=== PATIENT | female | born 1945 | race Caucasian/White ===

== ENCOUNTER 2019-12-12 22:08 | Observation (INO) | payer MEDICARE, OTHER, SELFPAY ==
[2019-12-12] VITALS (16 sets, daily range): BP systolic 112–189; BP diastolic 62–98; PULSE 82–103; RESP 20–40; TEMP 36.5; O2SAT 88–99; BMI 23.5
--- NOTE | 2019-12-12 22:19 | DI.CT.S_ITS ---
PROCEDURE: CT STROKE INDICATIONS: Left leg weak/word finding difficulties. 845pm onset TECHNIQUE: Noncontrast 4.5 mm thick angled axial sections acquired from the foramen magnum to the vertex, with coronal reformats. For radiation dose reduction, the following was used: automated exposure control, adjustment of mA and/or kV according to patient size. COMPARISON: [facility], CT, CT ANGIO HEAD AND NECK, 12/12/2019, 22:38. FINDINGS: Image quality: Excellent. CSF spaces: Basal cisterns are patent. No extra-axial fluid collections. Ventricles are normal in size and shape. Brain: No intracranial hemorrhage, mass, or mass effect. Patterson-white matter interface appears preserved. Skull and face: Calvarium and visualized facial bones appear intact, without suspicious lesions. Sinuses: Visualized sinuses demonstrate mild mucosal thickening within the ethmoid sinuses. Mastoid air cells are clear. IMPRESSION: 1. No acute intracranial abnormality. Specifically, no imaging contraindications to tPA identified. Concordant with preliminary interpretation. This study fulfills neurological imaging criteria for inclusion or exclusion of acute stroke therapies based on available published neurological guidelines. Dictated by: Jaret Johnston M.D. on 12/13/2019 at 7:37 Approved by: Jaret Johnston M.D. on 12/13/2019 at 7:41
--- NOTE | 2019-12-12 22:21 | ED_ITS ---
HPI - General Adult General Chief complaint: Extremity Problem,Nontraumatic Stated complaint: Leg pain Time Seen by Provider: 12/12/19 22:18 History of Present Illness HPI narrative: 74-year-old woman with a history of hypothyroidism and high cholesterol presents after noticing acute left leg weakness at 8:45 a.m. tonight. She and her are visiting the area in their boat. They had gone to dinner had a couple of drinks all seemed well then they drove over to a friend's house and is they got out of the car she found that her left leg simply did not hold her up. 911 was called her main complaint at this point is pain in the anterior part of her left thigh however she does have some word-finding difficulties. Related Data Home Medications Medication Instructions Recorded Confirmed ascorbic acid (vitamin C) 500 mg PO QDAY #0 10/11/16 ibuprofen 200 mg PO PRN #0 10/11/16 multivitamin [Multiple Vitamins] 1 tab PO QDAY #0 10/11/16 thyroid (pork) [Nature-Throid] 16.25 mg PO QDAY@0600 #0 10/11/16 vitamin A 10,000 unit PO #0 10/11/16 Previous Rx's Medication Instructions Recorded methocarbamol 500 mg PO QIDP PRN #28 tab 10/11/16 Allergies Allergy/AdvReac Type Severity Reaction Status Date / Time adhesive tape [ADHESIVE TAPE] Allergy Unknown Verified 12/13/19 00:08 latex [LATEX] Allergy Unknown Verified 12/13/19 00:08 Penicillins [PENICILLINS] Allergy Unknown Verified 12/13/19 00:08 Tetracyclines [TETRACYCLINES] Allergy Unknown Verified 12/13/19 00:08 Review of Systems Review of Systems Narrative: Pertinent positive and negative findings as per HPI Remainder of review of systems is otherwise unremarkable for Constitutional: Fevers, chills, weakness ENT: No sore throat, neck pain, ear pain CV: Chest pain, palpitations, dyspnea on exertion Respiratory: Cough, wheeze, dyspnea GI: Nausea, vomiting, diarrhea, change in bowel habits, black or bloody stools : Dysuria, hematuria, flank pain Skin: Rashes, nonhealing lesions Neuro: Syncope, dizziness, tingling Patient History Medical History (Updated 12/13/19 @ 00:36 by Tali Thomas MD) Hyperlipidemia (Acute) Hypothyroidism (acquired) (Acute) Social History Smoking Status: Never smoker Exam Narrative Exam Narrative: General: Healthy appearing, anxious with dramatic affect of behavior. Well-nourished well-developed HEENT: Moist mucous membranes, normal sclera with reactive pupils, Neck: No JVD, supple Respiratory: Lungs are clear to auscultation, no wheezing no rales no rhonchi. Full and symmetrical air movement Cardiac: Regular rate and rhythm no murmurs no bruits Abdomen: Soft nontender good bowel tones, no flank pain Skin: Warm and dry, no rashes Neurologic: Left leg weakness but she is able to lift off the bed. Initially had no pain now in the emergency department is having trouble explaining the symptoms of her leg but eventually and on pain in the medial aspect of her thigh. Extremities: No trauma, well perfused Psych: Cooperative, anxious, afraid, intoxicated Initial Vital Signs Initial Vital Signs: Vital Signs Pulse Oximetry 88 L 12/12/19 22:08 Scores NIH Stroke Scale Level of Conciousness: Alert, keenly responsive Ask month/age: Answers both questions correctly. Open/close eyes, close hand: Performs both tasks correctly Best gaze horizontal: Normal Visual george: No visual loss Facial palsy: Normal symetrical movement Left arm drift: No drift for full 10 sec Right arm drift: No drift for full 10 sec Left leg drift: Drifts down, not to bed Right leg drift: No drift for full 5 sec Limb ataxia: Present in one limb Sensory on face/arms/legs: Normal, no sensory loss Best language: Mild to moderate, slurs some words Dysarthria: Normal Extinction or inattention: No abnormality Total NIH Stroke scale score: 3 Citation:: On repeat exam at 11:36 p.m. The slight word-finding difficulty has resolved completely Still some subtle weakness in the left leg but no sensory deficits she is able to manipulate her leg more effectively NIH score is down to a 1 Course Orders Ordered: ED Orders 12/12/19 22:19 CT Stroke Stat EKG-12 Lead Stat 12/12/19 22:22 Complete Blood Count AUTO DIFF Stat 12/12/19 22:31 CT angio head and neck Stat 12/12/19 23:00 Comprehensive Metabolic Panel Stat Ethanol (ETOH) Stat Partial Thromboplastin Time Stat Prothrombin Time INR Stat Troponin & CK Cardiac Panel Stat 12/12/19 23:29 Urinalysis and Microscopic Stat Urine Culture Stat Urine Drug Screen, Rapid Stat 12/13/19 00:37 COVID19 -ED/INPAT/OR/L&D Stat Sodium Chloride (Normal Saline 0.9%) 1,000 mls @ 150 mls/hr IV CONT ELINA Last Admin: 12/12/19 22:30 Dose: 150 mls/hr Documented by: RMARTIN Discontinued Medications Ketorolac Tromethamine (Toradol) 15 mg IV NOW ONE Stop: 12/13/19 00:01 Last Admin: 12/13/19 00:06 Dose: 15 mg Documented by: KGALLAG Vital Signs Vital signs: Vital Signs - 8 hr 12/12/19 22:08 12/12/19 22:09 12/12/19 22:10 Temperature 97.7 F Pulse Rate 94 H 96 H Respiratory Rate 20 Blood Pressure 160/85 H 160/85 H Pulse Oximetry 88 L 98 96 12/12/19 22:27 12/12/19 22:30 12/12/19 22:31 Temperature Pulse Rate 98 H 88 103 H Respiratory Rate 40 H 38 H 37 H Blood Pressure 189/98 H 158/72 H Pulse Oximetry 99 92 99 12/12/19 22:35 12/12/19 22:50 12/12/19 23:00 Temperature Pulse Rate 93 H 97 H 91 H Respiratory Rate 20 Blood Pressure 153/74 H 171/98 H 136/80 Pulse Oximetry 99 99 98 12/12/19 23:06 12/12/19 23:15 12/12/19 23:20 Temperature Pulse Rate 92 H 91 H 82 Respiratory Rate 25 H 30 H 31 H Blood Pressure 139/80 112/82 115/72 Pulse Oximetry 99 98 96 12/12/19 23:25 12/12/19 23:30 12/12/19 23:35 Temperature Pulse Rate 95 H 84 86 Respiratory Rate 30 H 24 30 H Blood Pressure 121/74 133/80 133/75 Pulse Oximetry 98 99 99 12/12/19 23:45 12/13/19 00:00 Temperature Pulse Rate 89 88 Respiratory Rate Blood Pressure 124/62 148/69 H Pulse Oximetry 99 99 Medical Decision Making Medical Records Medical records reviewed: Yes I reviewed the patient's medical records. Lab Data Lab results reviewed: Yes I reviewed the patient's lab results. Result diagrams: 12/12/19 22:22 12/12/19 23:00 Labs: Lab Results 12/12/19 12/12/19 12/12/19 Range/Units 22:22 23:00 23:00 WBC 7.6 (4.5-11.0) X10^3/uL RBC 4.58 (4.0-5.2) X10^6/uL Hgb 14.8 (12.0-16.0) g/dL Hct 43.0 (36-46) % MCV 94.0 (80-100) fL MCH 32.3 (26-34) PG MCHC 34.4 (30-36) % RDW 13.5 (11.6-14.8) % Plt Count 344 (150-400) X10^3/uL Neut % (Auto) 40.0 L (50-75) % Lymph % (Auto) 48.9 H (25-40) % [place] % (Auto) 6.9 (3-14) % Eos % (Auto) 3.6 (2-4) % Baso % (Auto) 0.6 (0-2) % Neut # (Auto) 3000 (9417-9465) /uL Lymph # (Auto) 3700 (8196-7898) /uL [place] # (Auto) 500 (0-900) /uL Eos # (Auto) 300 (0-450) /uL Baso # (Auto) 0 (0-100) /uL PT 10.5 (10.1-12.7) SECONDS INR 0.9 (0.9-1.3) APTT 29 (26.4-36.2) SECONDS Sodium 140 (137-145) mmol/L Potassium 5.1 (3.4-5.1) mmol/L Chloride 105 (98-107) mmol/L Carbon Dioxide 25 (22-32) mmol/L BUN 16 (7-17) mg/dL Creatinine 0.68 (0.52-1.04) mg/dL Estimated GFR > 60.0 (>60) mL/min BUN/Creatinine Ratio 23.5 H (6-22) Glucose 96 (80-110) mg/dL Calcium 9.3 (8.4-10.2) mg/dL Total Bilirubin 0.4 (0.2-1.3) mg/dL AST 27 (14-36) IU/L ALT 21 (<35) IU/L Alkaline Phosphatase 81 (38-126) U/L Total Creatine Kinase 72 (30-135) U/L CK-MB (CK-2) TNP CK-MB (CK-2) Rel Index TNP Troponin I < 0.012 (0.01-0.034) ng/mL Total Protein 7.4 (6.3-8.2) g/dL Albumin 4.4 (3.5-5.0) g/dL Globulin 3.0 (1.7-4.1) g/dL Albumin/Globulin Ratio 1.5 (1.0-2.8) Urine Color Urine Appearance Urine pH (4.5-8.0) Ur Specific [place] (1.000-1.035) Urine Protein (Negative) Urine Glucose (UA) (Negative) g/dL Urine Ketones (NEGATIVE) Urine Occult Blood (Negative) Urine Nitrate (Negative) Urine Bilirubin (NEGATIVE) Urine Urobilinogen (0.2) E.U./dL Ur Leukocyte Esterase (NEGATIVE) Urine RBC (0-5/HPF) Urine WBC (0-5/HPF) Urine Bacteria (None) Ur Culture Indicated? U Opiates 300ng/mL cut (Negative) Ur Oxycodone Screen (Negative) Urine Methadone Screen (Negative) Ur Barbiturates Screen (Negative) U Tricyclic Antidepress (Negative) Ur Phencyclidine Scrn (Negative) Ur Amphetamines Screen (Negative) U Methamphetamines Scrn (Negative) Ur MDMA Scrn (Ecstasy) (Negative) U Benzodiazepines Scrn (Negative) Urine Cocaine Screen (Negative) U Marijuana (THC) Screen (Negative) Ethyl Alcohol 229 H ( - 10) mg/dL 12/12/19 12/12/19 Range/Units 23:29 23:29 WBC (4.5-11.0) X10^3/uL RBC (4.0-5.2) X10^6/uL Hgb (12.0-16.0) g/dL Hct (36-46) % MCV (80-100) fL MCH (26-34) PG MCHC (30-36) % RDW (11.6-14.8) % Plt Count (150-400) X10^3/uL Neut % (Auto) (50-75) % Lymph % (Auto) (25-40) % [place] % (Auto) (3-14) % Eos % (Auto) (2-4) % Baso % (Auto) (0-2) % Neut # (Auto) (6494-6469) /uL Lymph # (Auto) (7082-3297) /uL [place] # (Auto) (0-900) /uL Eos # (Auto) (0-450) /uL Baso # (Auto) (0-100) /uL PT (10.1-12.7) SECONDS INR (0.9-1.3) APTT (26.4-36.2) SECONDS Sodium (137-145) mmol/L Potassium (3.4-5.1) mmol/L Chloride (98-107) mmol/L Carbon Dioxide (22-32) mmol/L BUN (7-17) mg/dL Creatinine (0.52-1.04) mg/dL Estimated GFR (>60) mL/min BUN/Creatinine Ratio (6-22) Glucose (80-110) mg/dL Calcium (8.4-10.2) mg/dL Total Bilirubin (0.2-1.3) mg/dL AST (14-36) IU/L ALT (<35) IU/L Alkaline Phosphatase (38-126) U/L Total Creatine Kinase (30-135) U/L CK-MB (CK-2) CK-MB (CK-2) Rel Index Troponin I (0.01-0.034) ng/mL Total Protein (6.3-8.2) g/dL Albumin (3.5-5.0) g/dL Globulin (1.7-4.1) g/dL Albumin/Globulin Ratio (1.0-2.8) Urine Color Yellow Urine Appearance Clear Urine pH 6.5 (4.5-8.0) Ur Specific [place] <=1.005 (1.000-1.035) Urine Protein Negative (Negative) Urine Glucose (UA) Negative (Negative) g/dL Urine Ketones Negative (NEGATIVE) Urine Occult Blood Trace-intact (Negative) Urine Nitrate Negative (Negative) Urine Bilirubin Negative (NEGATIVE) Urine Urobilinogen 0.2 (0.2) E.U./dL Ur Leukocyte Esterase 2+ H (NEGATIVE) Urine RBC 0-1/hpf (0-5/HPF) Urine WBC 1-5/hpf (0-5/HPF) Urine Bacteria None seen (None) Ur Culture Indicated? Specimen cultured U Opiates 300ng/mL cut Negative (Negative) Ur Oxycodone Screen Negative (Negative) Urine Methadone Screen Negative (Negative) Ur Barbiturates Screen Negative (Negative) U Tricyclic Antidepress Negative (Negative) Ur Phencyclidine Scrn Negative (Negative) Ur Amphetamines Screen Negative (Negative) U Methamphetamines Scrn Negative (Negative) Ur MDMA Scrn (Ecstasy) Negative (Negative) U Benzodiazepines Scrn Negative (Negative) Urine Cocaine Screen Negative (Negative) U Marijuana (THC) Screen Negative (Negative) Ethyl Alcohol ( - 10) mg/dL Point of Care Testing Glucose POC 108 Urine Dip Bedside Urine Glucose 100 mg/dl Bedside Urine Ketone - Negative Urine Specific [place] 1.01 Bedside Urine Occult Blood +/- Bedside Urine pH 6 Bedside Urine Protein - Negative Bedside Urine Urobilinogen - Negative Bedside Urine Nitrite - Negative Bedside Urine Leukocytes ++ 125 Esterase Point of care testing: Point of Care Testing Glucose POC 108 Urine Dip Bedside Urine Glucose 100 mg/dl Bedside Urine Ketone - Negative Urine Specific [place] 1.01 Bedside Urine Occult Blood +/- Bedside Urine pH 6 Bedside Urine Protein - Negative Bedside Urine Urobilinogen - Negative Bedside Urine Nitrite - Negative Bedside Urine Leukocytes ++ [address] scan - head: Radiologist's Impression: No acute findings Harleen Greco MD CTA head and neck: Radiologist's Impression: No intracranial large artery occlusion or hemodynamically significant stenosis No occlusion or hemodynamically significant stenosis in the carotid or vertebral arteries. No dissection Tay Chatman MD ECG Data Attestation: I personally reviewed and interpreted this ECG as follows: Interpretation: Sinus rhythm at a rate of 90 Normal axis, normal intervals No acute ST- T wave changes MDM Narrative Medical decision making narrative: code stroke called 10:21pm. 11:37 CT scan is reviewed personally. No evidence of acute intracranial hemorrhage. Due to technical difficulty still waiting to hear back from Radiology Patient is reexamined and stroke scale reviewed. She is down to an NIH score of 1 from 3. I do suspect that some of the anxiety dramatic affect and word-finding difficulties were related to acute alcohol intoxication rather than stroke. Discussed findings, concerns and improved symptoms with patient and her . Because of uncertain diagnosis, minimal NIH score and improving symptoms she is not a tPA candidate. Still waiting for CTA read to see if additional intervention may be appropriate 11:43 Radiology confirms normal head CT Still having left leg weakness without sensory changes. Also now noticing some left knee pain. She has had a left knee replacement. At this time, best explanation for the acute left leg weakness is a small stroke. TIAs possibility. Would like to admit her for further stroke workup. 1252 Care reviewed with night hospitalist, Ottoniel LANE Discharge Plan Departure Patient Disposition: Admitted as Observation Clinical Impression: Stroke Qualifiers: CVA mechanism: unspecified Qualified Code(s): I63.9 - Cerebral infarction, unspecified
[2019-12-12] MEDS: SODIUM CHLORIDE 0.9% 1,000 ML 150 ML IV (22:30)
--- NOTE | 2019-12-12 22:31 | DI.CT.S_ITS ---
PROCEDURE: CT ANGIO HEAD AND NECK INDICATIONS: left leg weakness, word finding difficulty 845pm TECHNIQUE: After the administration of intravenous contrast, 1 mm thick sections acquired from the aortic arch through the [place]. Post-contrast 4.5 mm thick sections then re-acquired from the foramen magnum to the vertex. 3-dimensional [id number] (MIP) and/or volume rendering reformats were acquired of the central intracranial vasculature and neck separately. COMPARISON: None. FINDINGS: Image quality: Excellent. BRAIN: CSF spaces: Basal cisterns are patent. No extra-axial fluid collections. Ventricles are normal in size and shape. Brain: No intracranial hematoma collections, mass, or mass effect. Patterson-white matter interface appears preserved. No abnormal intracranial enhancement. Skull and face: Calvarium and facial bones appear intact, without suspicious lesions. Orbits appear normal. Sinuses: Sinuses and mastoids are clear. HEAD CT ANGIOGRAPHY: Anterior circulation: Intracranial internal carotid arteries are normal in size and appear patent bilaterally. There is mild atherosclerotic calcification along the cavernous segments of the internal carotid arteries. The paired anterior cerebral arteries appear patent bilaterally. The anterior communicating artery also appears patent. The middle cerebral arteries appear patent bilaterally. No high-grade stenosis, occlusion, or filling defects. No cerebral aneurysms identified. Posterior circulation: Visualized portions of the vertebral arteries demonstrate normal caliber, and join to form a patent basilar artery. The posterior cerebral arteries appears patent bilaterally. No high-grade stenosis, occlusion, or filling defects. No cerebral aneurysms identified. NECK CT ANGIOGRAPHY: Carotid system: The great vessels demonstrate a conventional anatomy as they arise from the aortic arch. The origins of the common carotid arteries appear patent. The common carotid arteries demonstrate normal caliber and courses. The bifurcation regions are both widely patent. There is mild vascular calcification in the left carotid bulb. The internal carotid arteries demonstrate normal calibers and courses. Posterior circulation: The origins of the vertebral arteries both appear patent. The more superior extracranial portions of both vertebral arteries also demonstrate normal courses and calibers. They join to form a patent basilar artery. Soft tissues: Visualized neck soft tissues demonstrate a left thyroid nodule measuring up to 1.6 cm. Bones: No suspicious bony lesions. Visualized cervical spine demonstrates mild reversal the cervical lordosis in the midcervical spine. There is minimal anterolisthesis at C3-C4 and minimal retrolisthesis at C6-C7. Moderate degenerative disc disease is demonstrated in the mid and lower cervical spine. There is [id number] facet arthropathy throughout the cervical spine. IMPRESSION: 1. No definite acute intracranial abnormality. 2. No high-grade stenosis or occlusion of the central intracranial arteries. No discrete filling defects. 3. No high-grade stenosis or occlusion of the head and neck arteries. The carotid bulbs appear widely patent. Concordant with preliminary interpretation. Any quantitative measurements of stenosis were performed using NASCET criteria. Dictated by: Jaret Johnston M.D. on 12/13/2019 at 7:42 Approved by: Jaret Johnston M.D. on 12/13/2019 at 7:54
[2019-12-12 22:32] LABS: Add Manual Diff / Slide Review NO; Basophils Absolute Auto 0 /uL (0-100); Basophils Percent Auto 0.6 % (0-2); Eosinophils Absolute Auto 300 /uL (0-450); Eosinophils Percent Auto 3.6 % (2-4); Hemoglobin 14.8 g/dL (12.0-16.0); Lymphocytes Absolute Auto 3700 /uL (1100-4500); Lymphocytes Percent Auto 48.9 % (25-40); Mean Corpuscular HGB Conc 34.4 % (30-36); Mean Corpuscular Hemoglobin 32.3 PG (26-34); Monocytes Absolute Auto 500 /uL (0-900); Monocytes Percent Auto 6.9 % (3-14); Neutrophils Absolute Auto 3000 /uL (1500-7000); Platelet Count 344 X10^3/uL (150-400); Red Blood Cell Count 4.58 X10^6/uL (4.0-5.2); Red Cell Distribution Width 13.5 % (11.6-14.8); White Blood Cell Count 7.6 X10^3/uL (4.5-11.0)
[2019-12-12 23:12] LABS: INR 0.9 (0.9-1.3); Prothrombin Time 10.5 SECONDS (10.1-12.7)
[2019-12-12 23:15] LABS: PTT Partial Thromboplastin Tim 29 SECONDS (26.4-36.2)
[2019-12-12 23:16] LABS: Alanine Aminotransferase 21 IU/L (<35); Albumin 4.4 g/dL (3.5-5.0); Albumin Globulin Ratio 1.5 (1.0-2.8); Alkaline Phosphatase 81 U/L (38-126); Aspartate Aminotransferase 27 IU/L (14-36); BUN Creatinine Ratio 23.5 (6-22); Bilirubin Total 0.4 mg/dL (0.2-1.3); Blood Urea Nitrogen 16 mg/dL (7-17); Calcium 9.3 mg/dL (8.4-10.2); Carbon Dioxide 25 mmol/L (22-32); Chloride 105 mmol/L (98-107); Creatine Kinase 72 U/L (30-135); Estimated Glomerular Filt Rate > 60.0 mL/min (>60); Ethanol (ETOH) 229 mg/dL; Glucose 96 mg/dL (80-110); HEMOLYSIS < 15 (0-50); Potassium 5.1 mmol/L (3.4-5.1); Sodium 140 mmol/L (137-145); Total Protein 7.4 g/dL (6.3-8.2)
[2019-12-12 23:27] LABS: Troponin I < 0.012 ng/mL (0.01-0.034)
[2019-12-12 23:32] LABS: Bacteria Urine None Seen
[2019-12-12 23:34] LABS: Appearance Urine UA CLEAR; Bilirubin Urine UA NEGATIVE (NEGATIVE); Color Urine UA YELLOW; Glucose Urine UA NEGATIVE (Negative); Ketones Urine UA NEGATIVE (NEGATIVE); Leukocyte Esterase Urine UA 2+ (NEGATIVE); Nitrite Urine UA NEGATIVE (Negative); Occult Blood Urine UA TRACE-INTACT (Negative); Protein Urine UA NEGATIVE (Negative); Specific Gravity Urine UA <=1.005 (1.000-1.035); Urobilinogen Urine UA 0.2 E.U./dL (0.2)
[2019-12-12 23:37] LABS: pH Urine UA 6.5 (4.5-8.0)
[2019-12-12 23:40] LABS: UR Morphine/Opiate cutoff 300 Negative (Negative); Ur Creatinine 20 (Normal); Ur Specific Gravity 1.015 (Normal); Urine Amphetamines Negative (Negative); Urine Barbiturates Negative (Negative); Urine Benzodiazepines Negative (Negative); Urine Cocaine Negative (Negative); Urine MDMA Negative (Negative); Urine Methadone Negative (Negative); Urine Methamphetamines Negative (Negative); Urine Oxycodone Negative (Negative); Urine Phencyclidine Negative (Negative); Urine Tetrahydrocannabinol Negative (Negative); Urine Tricyclic Antidepressant Negative (Negative); Urine pH 5 (Normal)
[2019-12-12 23:43] LABS: RBC Urine 0-1/HPF (0-5/HPF); WBC Urine 1-5/HPF (0-5/HPF)
[2019-12-12 23:44] LABS: Culture Indicated Urine Specimen Cultured
[2019-12-13] VITALS (12 sets, daily range): BP systolic 123–150; BP diastolic 66–85; PULSE 74–91; RESP 16–28; TEMP 36.5–37.1; O2SAT 94–100; BMI 24.1
--- NOTE | 2019-12-13 | DI.US.S_ITS ---
PROCEDURE: US EXTREMITY NONVASC LOWER LT INDICATIONS: LEFT KNEE PAIN; POSSIBLE BAKERS CYST TECHNIQUE: Real-time scanning was performed of the left knee, with image documentation. COMPARISON: None. FINDINGS: Evaluation in the area of clinical concern within the superomedial left knee demonstrates an oval slightly hyperechoic solid-appearing mass measuring approximately 3.0 x 2.0 x 3.8 cm. There are slightly lobulated contours. No internal vascularity on color Doppler interrogation. No discrete Cifuentes's cyst identified. IMPRESSION: 1. Solid-appearing mass demonstrated within the superomedial aspect of the left knee. The finding is incompletely evaluated on ultrasound and further evaluation is recommended with a contrast-enhanced MRI. Dictated by: Jaret Johnston M.D. on 12/13/2019 at 9:55 Approved by: Jaret Johnston M.D. on 12/13/2019 at 9:59
[2019-12-13] MEDS: KETOROLAC 60 MG/2 ML VIAL 15 MG IV (00:06)
[2019-12-13 00:58] LABS: COVID19 -Nasal RAPID Negative (Negative)
--- NOTE | 2019-12-13 01:47 | P.HP_ITS ---
History of Present Illness History of Present Illness Date Patient Seen: 12/13/19 Time Patient Seen: 01:47 Chief complaint: Leg pain Narrative: Ms. Jeannie Santos is a 74-year-old female with a past medical history significant for hypertension, hyperlipidemia and hypothyroidism who presents to the ER with left leg weakness. The patient has been her visit ing on the boat from [facility] and had had dinner out with friends had consumes alcoholic beverages. She was getting out of the car at approximately 8:45 p.m. tonight when she found she could not move her left leg or bear weight. The patient reports no antecedent trauma or injury and denies complaints of back pain, headache or dizziness. She has had no previous episodes of leg weakness though she is status post left total knee replacement. The patient complains of left knee pain, no radiculopathy, no muscular pain. She has had no recent illness with no fevers or chills, denies nasal congestion or sore throat. She has had no chest pain or palpitations. She denies shortness of breath cough or wheezing and has a past smoker quitting in 1979. She reports no abdominal pain, nausea vomiting, diarrhea or constipation. She has no urinary symptoms but endorses stress incontinence. Patient is typically ambulatory using no assistive devices and independent in all ADLs. Upon arrival the patient is afebrile with a temperature 97.7?, heart rate of 96, blood pressure 160/85, respirations of 20 saturating 96% on room air. CT stroke protocol is obtained finding no acute intracranial pathology, CT angiogram also obtained finding no occlusion or hemodynamically significant stenosis of the carotid or vertebral arteries, no dissection. On laboratory analysis patient has white count 7.6, hemoglobin 14.8, hematocrit 43.3 and platelets of 344. She has a PT of 10.5, INR 0.9 and PTT of 29. Electrolytes within normal range with a BUN of 16 and creatinine 0.68, nonfasting glucose is 96. Liver functions are all within normal range. She has a total CK is 72 and a troponin negative less than 0.012. Her urinalysis is positive for leukocyte esterase but negative for nitrites WBCs or bacteria. An IH on initial presentation to the ER is reported as 3 at time of admission her NIH score is 1. In the ER the patient received 15 mg Toradol IV and 1 L of IV fluid. Patient mid to the medicine service for possible CVA versus TIA. Patient History Medical History Hyperlipidemia (Acute) Hypertension (Acute) Hypothyroidism (acquired) (Acute) Surgical History History of ankle surgery (Acute) History of bladder suspension procedure (Acute) History of hysterectomy (Acute) History of total knee arthroplasty (Acute) Family & Social History Family History (Updated 12/13/19 @ 02:04 by AIRANA Bowling) Father Cardiovascular disease Mother Cancer Sister Thyroid disease Safety & Behavioral: Feels Safe in Current Yes Environment Been Physically Hurt or No Threatened By a Person Tobacco & Substance use: Smoking Status Never smoker Meds Home Medications and Allergies Home Medications Medication Instructions Recorded Confirmed Type Nature-Throid 16.25 mg PO QDAY@0600 #0 10/11/16 12/13/19 History ascorbic acid (vitamin C) 4,000 mg PO BID #0 10/11/16 12/13/19 History multivitamin [Multiple Vitamins] 1 tab PO QDAY #0 10/11/16 12/13/19 History rosuvastatin [Crestor] 5 mg PO 12/13/19 History Allergies Allergy/AdvReac Type Severity Reaction Status Date / Time adhesive tape [ADHESIVE TAPE] Allergy Unknown Verified 12/13/19 00:08 latex [LATEX] Allergy Unknown Verified 12/13/19 00:08 Penicillins [PENICILLINS] Allergy Unknown Verified 12/13/19 00:08 Tetracyclines [TETRACYCLINES] Allergy Unknown Verified 12/13/19 00:08 Review of Systems Review of Systems ROS: Yes All systems reviewed with the patient and are negative except as otherwise documented Exam Vital Signs (past 8 hours): - 12/12/19 22:08 12/12/19 22:09 12/12/19 22:10 Temperature 97.7 F Pulse Rate 94 H 96 H Respiratory Rate 20 Blood Pressure 160/85 H 160/85 H Pulse Oximetry 88 L 98 96 12/12/19 22:27 12/12/19 22:30 12/12/19 22:31 Temperature Pulse Rate 98 H 88 103 H Respiratory Rate 40 H 38 H 37 H Blood Pressure 189/98 H 158/72 H Pulse Oximetry 99 92 99 12/12/19 22:35 12/12/19 22:50 12/12/19 23:00 Temperature Pulse Rate 93 H 97 H 91 H Respiratory Rate 20 Blood Pressure 153/74 H 171/98 H 136/80 Pulse Oximetry 99 99 98 12/12/19 23:06 12/12/19 23:15 12/12/19 23:20 Temperature Pulse Rate 92 H 91 H 82 Respiratory Rate 25 H 30 H 31 H Blood Pressure 139/80 112/82 115/72 Pulse Oximetry 99 98 96 12/12/19 23:25 12/12/19 23:30 12/12/19 23:35 Temperature Pulse Rate 95 H 84 86 Respiratory Rate 30 H 24 30 H Blood Pressure 121/74 133/80 133/75 Pulse Oximetry 98 99 99 12/12/19 23:45 12/13/19 00:00 12/13/19 00:15 Temperature Pulse Rate 89 88 78 Respiratory Rate 22 Blood Pressure 124/62 148/69 H 133/78 Pulse Oximetry 99 99 98 12/13/19 00:30 12/13/19 00:45 12/13/19 01:00 Temperature Pulse Rate 77 79 77 Respiratory Rate 17 28 H 26 H Blood Pressure 131/72 143/76 H 130/76 Pulse Oximetry 97 96 94 12/13/19 01:10 Temperature 97.7 F Pulse Rate 74 Respiratory Rate 16 Blood Pressure 123/73 Pulse Oximetry 95 Oxygen Delivery Method Room Air Oxygen Flow Rate 0 Narrative Exam Narrative: GENERAL APPEARANCE: well developed, well nourished, in no acute distress. HEENT: Symmetrical facies, no ptosis, no facial droop, PERRLA, conjunctiva clear, EOMs intact without nystagmus, no sinus tenderness to percussion, no rhinorrhea, mucous membranes are moist and pink without lesions or exudate. NECK/THYROID: neck supple, no JVD, no carotid bruit, no thyromegaly, trachea midline. LYMPH NODES: no cervical or supraclavicular lymphadenopathy. SKIN: [place], warm and dry, no visible rashes or lesions HEART: regular rate and rhythm, S1-S2, 1/6 systolic murmur, no rubs or gallops, brisk capillary refill, no edema LUNGS: clear to auscultation bilaterally, no coarseness crackles or wheezing, no cough present CHEST: Symmetrical movement, no accessory muscle use, good tidal volume. ABDOMEN: Soft, no distention, no abdominal tenderness, no guarding or peritoneal signs, no organomegaly, no flank or suprapubic tenderness, active bowel tones. BACK: Normal curvature, nontender to palpation. EXTREMITIES: Well-healed surgical scar anterior left knee, popliteal pain on palpation, ligaments are stable, Drift left lower extremity, all other extremity strength, NEUROLOGIC: AAO x4, NIH score of 1 for left leg drift, could recall, no ataxia, sensation intact to light touch without extinction, hearing grossly normal to speech. PSYCH: Good eye contact, briskly interactive, cooperative, appropriate with stable behavior Objective Labs Result Diagrams: 12/12/19 22:22 12/12/19 23:00 Labs: Laboratory Results - last 24 hr 12/12/19 12/12/19 12/12/19:22 23:00 23:00 WBC 7.6 RBC 4.58 Hgb 14.8 Hct 43.0 MCV 94.0 MCH 32.3 MCHC 34.4 RDW 13.5 Plt Count 344 Neut % (Auto) 40.0 L Lymph % (Auto) 48.9 H [place] % (Auto) 6.9 Eos % (Auto) 3.6 Baso % (Auto) 0.6 Neut # (Auto) 3000 Lymph # (Auto) 3700 [place] # (Auto) 500 Eos # (Auto) 300 Baso # (Auto) 0 PT 10.5 INR 0.9 APTT 29 Sodium 140 Potassium 5.1 Chloride 105 Carbon Dioxide 25 BUN 16 Creatinine 0.68 Estimated GFR > 60.0 BUN/Creatinine Ratio 23.5 H Glucose 96 Calcium 9.3 Total Bilirubin 0.4 AST 27 ALT 21 Alkaline Phosphatase 81 Total Creatine Kinase 72 CK-MB (CK-2) TNP CK-MB (CK-2) Rel Index TNP Troponin I < 0.012 Total Protein 7.4 Albumin 4.4 Globulin 3.0 Albumin/Globulin Ratio 1.5 Urine Color Urine Appearance Urine pH Ur Specific [place] Urine Protein Urine Glucose (UA) Urine Ketones Urine Occult Blood Urine Nitrate Urine Bilirubin Urine Urobilinogen Ur Leukocyte Esterase Urine RBC Urine WBC Urine Bacteria Ur Culture Indicated? U Opiates 300ng/mL cut Ur Oxycodone Screen Urine Methadone Screen Ur Barbiturates Screen U Tricyclic Antidepress Ur Phencyclidine Scrn Ur Amphetamines Screen U Methamphetamines Scrn Ur MDMA Scrn (Ecstasy) U Benzodiazepines Scrn Urine Cocaine Screen U Marijuana (THC) Screen Ethyl Alcohol 229 H COVID-19 PCR 12/12/19 12/12/19 12/13/19 23:29 23:29 00:37 WBC RBC Hgb Hct MCV MCH MCHC RDW Plt Count Neut % (Auto) Lymph % (Auto) [place] % (Auto) Eos % (Auto) Baso % (Auto) Neut # (Auto) Lymph # (Auto) [place] # (Auto) Eos # (Auto) Baso # (Auto) PT INR APTT Sodium Potassium Chloride Carbon Dioxide BUN Creatinine Estimated GFR BUN/Creatinine Ratio Glucose Calcium Total Bilirubin AST ALT Alkaline Phosphatase Total Creatine Kinase CK-MB (CK-2) CK-MB (CK-2) Rel Index Troponin I Total Protein Albumin Globulin Albumin/Globulin Ratio Urine Color Yellow Urine Appearance Clear Urine pH 6.5 Ur Specific [place] <=1.005 Urine Protein Negative Urine Glucose (UA) Negative Urine Ketones Negative Urine Occult Blood Trace-intact Urine Nitrate Negative Urine Bilirubin Negative Urine Urobilinogen 0.2 Ur Leukocyte Esterase 2+ H Urine RBC 0-1/hpf Urine WBC 1-5/hpf Urine Bacteria None seen Ur Culture Indicated? Specimen cultured U Opiates 300ng/mL cut Negative Ur Oxycodone Screen Negative Urine Methadone Screen Negative Ur Barbiturates Screen Negative U Tricyclic Antidepress Negative Ur Phencyclidine Scrn Negative Ur Amphetamines Screen Negative U Methamphetamines Scrn Negative Ur MDMA Scrn (Ecstasy) Negative U Benzodiazepines Scrn Negative Urine Cocaine Screen Negative U Marijuana (THC) Screen Negative Ethyl Alcohol COVID-19 PCR Negative Assessment & Plan Assessment & Plan narrative: This is a 74-year-old female patient who experienced an abrupt onset of left leg weakness minute and get out of the car after eating dinner out. 1. Left lower extremity weakness, rule out CVA versus TIA, present on admission, active. -patient describes the sudden onset of left leg pain with no prior symptoms of weakness or discomfort. She reports popliteal pain without numbness or tingling. -patient with resolving symptoms while in the ER with an NIH score improving fro m a Score 3 to a score of 1. On exam on the floor the patient has an NIH score of 1. -patient's risk factors include hypertension hyperlipidemia is being treated through her radiology services manager. -ordered aspirin 325 mg and 1 now and 81 mg daily. -ordered MRI stroke protocol for the morning. -ordered echocardiogram. -ordered lipid panel, hemoglobin A1c and TSH. -requested PT, OT and ST to consult evaluate and treat. 2. Hypertension, chronic, stable. -on admission to the ER the patient's blood pressure 160/85 later improving to 123/73 on admission to the acute care floor. -the patient is on no antihypertensive medications being treated by radiology services manager. -Will monitor blood pressures. 3. Hyperlipidemia, chronic, stable. -patient is taking Crestor 5 mg Wednesdays and Fridays. 4. Hypothyroidism, chronic, stable -the patient takes a thyroid combination medication provided by her radiology services manager of which she does not recall the dosage. Her will bring in the medication in the morning. VTE prophylaxis: SCDs, heparin IV fluid: Normal saline 75 cc/hour. Diet: Heart healthy Code status: DNR, she designates her to be her surrogate decision maker. The patient is admitted to the hospital due to the severity of symptoms and the risk for potential complications and adverse events. She is admitted as observation with expected length of stay to be less than 2 midnights. COVID-19 COVID-19 status: Negative Result date/Date tested (Pos, Neg/Pending): 12/13/19 Scores GCS [place] coma scale eye opening: Spontaneous [place] coma scale verbal response: Orientated Parris coma scale motor response: Obey commands Parris coma scale total score: 15
[2019-12-13 01:51] LABS: Magnesium 2.2 mg/dL (1.6-2.3)
[2019-12-13] MEDS: SODIUM CHLORIDE 0.9% 1,000 ML 75 ML IV (02:21)
[2019-12-13] MEDS: ASPIRIN EC 81 MG TABLET PO (02:34)
--- NOTE | 2019-12-13 02:57 | PC.NURSE ---
0110 Pt. admitted to room 222 from emergency department accompanied by her spouse. Oriented to her room and showed her how to use her call light, TV & bed controls. Encouraged not to get OOB without any assistance. Call light with in reach, Bed alarm activated. Noted having difficulty ambulating R/T LLE weakness & pain. Offered her Tramadol for pain but she declined, states I'll be fine, pain is not bad when I just lay in bed. Instructed to call RN if needed some pain relief, denies GEE & chest pain. Will cont. POC & monitor.
[2019-12-13] MEDS: KETOROLAC 30 MG/ML VIAL 15 MG IV (05:24)
[2019-12-13 05:34] LABS: Hemoglobin A1C% w Est Avg Glu 5.4 % (4.0-6.0)
--- NOTE | 2019-12-13 05:42 | PC.NURSE ---
ARIANA Maurer notified patient C/O left thigh pain that radiate to her left groin. Patient reported the pain moved up to my left groin, it was back of my left knee earlier. Instructed to do ROM, but was not able to do it. she stated I don't have good range of motion since my knee replacement surgery. Medicated with 15 mg. of Toradol IVP & ice pack applied. Will monitor.
[2019-12-13 05:44] LABS: BUN Creatinine Ratio 19.7 (6-22); Blood Urea Nitrogen 13 mg/dL (7-17); Calcium 8.6 mg/dL (8.4-10.2); Carbon Dioxide 24 mmol/L (22-32); Chloride 107 mmol/L (98-107); Cholesterol 235 mg/dL (140-199); Estimated Glomerular Filt Rate > 60.0 mL/min (>60); Glucose 83 mg/dL (80-110); HDL Cholesterol 96 mg/dL (40-60); HEMOLYSIS < 15 (0-50); LDL Cholesterol Calculated 115 mg/dL (<100); Sodium 140 mmol/L (137-145); Triglycerides 119 mg/dL (35-150)
[2019-12-13 06:08] LABS: Thyroid Stimulating Hormone < 0.015 uIU/mL (0.47-4.68)
--- NOTE | 2019-12-13 06:42 | PC.NURSE ---
Pt. C/O slight GEE rated pain level 10, ARNP. Maurer notified.
[2019-12-13] MEDS: HEPARIN 5,000 UNIT/ML VIAL 5000 UNIT SUBCUT ×2 (08:58→20:27)
[2019-12-13] MEDS: TRAMADOL 50 MG TABLET PO (09:01)
--- NOTE | 2019-12-13 11:38 | DI.MRI.S_ITS ---
PROCEDURE: MR KNEE LT WO/W CON INDICATIONS: mass behind left knee, need to evaluate TECHNIQUE: Noncontrast sagittal PD fast spin echo and STIR with fat saturation, sagittal 3-D FLASH with fat saturation; coronal T1 spin echo and PD fast spin echo with fat saturation, and axial T1 spin echo and PD fast spin echo with fat saturation through the knee. Post-contrast axial, coronal, and sagittal T1 spin echo with fat saturation through the knee. COMPARISON: None. FINDINGS: Image quality: There is markedly suboptimal evaluation due to hardware artifact from arthroplasty In the area marked by the fiducial placed on the skin surface of the medial knee, there is prominent fat signal intensity in the subcutaneous soft tissues raising the possibility of unencapsulated lipoma (3.0 x 1.8 cm). Exact margins are difficult to delineate. In the area more posteriorly, there is also a large Cifuentes's cyst which measures approximately 7-8 cm in the cephalocaudal dimension and approximately 3.5 x 1.1 cm in cross-sectional dimensions as seen on axial image 14/6. Visualized muscle signal intensity grossly unremarkable. Vascular structures appear within normal limits. IMPRESSION: No discrete enhancing solid mass in the area of palpable abnormality marked by the skin fiducial. However, there is significant degradation of the study due to hardware artifact, which compromises fat suppression on the postcontrast enhanced pulse sequences. Prominent subcutaneous fat signal intensity in this area raises the possibility of unencapsulated lipoma. Nearby, more posteriorly, there is a large Cifuentes's cyst. Please correlate clinically and recommend clinical management Dictated by: Adria Blackwell M.D. on 12/14/2019 at 16:20 Approved by: Adria Blackwell M.D. on 12/14/2019 at 16:28
[2019-12-13] MEDS: OXYCODONE 5 MG/5 ML ORAL SOLUTION 10 MG PO (11:51)
--- NOTE | 2019-12-13 11:53 | PT-IP ANOTE ---
This PT received orders and reviewed chart. Hospitalist now advising of newly-identified left knee mass and requests PT hold evaluation until MRI can be completed. Will follow up on 12/14/19.
--- NOTE | 2019-12-13 12:43 | DI.ECHO.S_ITS ---
Echocardiogram Report + + :Name: EVER ROD Study Date: 12/13/2019 Height: 67 in : :[facility] Weight: 150 lb : : Gender: Other BSA: 1.8 m2 : :: 1945 Age: 74 yrs BP: 123/73 mmHg: :Reason For Study: CVA vs TIA : :Ordering Physician: [place] : :Hospitalist Performed By: Chayito Page : + + Interpretation Summary Left ventricular systolic function is normal with an estimated ejection fraction of 60 to 65% without any focal wall motion abnormality. There is a probable relaxation diastolic abnormality but normal filling pressures. The right ventricle appears normal. Right ventricular systolic pressure is estimated at 28 to 33 mmHg with a CVP of 3 to 8 mmHg. The left atrium is moderately enlarged while the right atrium is normal in size. The interatrial septum appears intact. There is probable mild aortic valve stenosis with a peak velocity of 2.8 m/s and a mean gradient of 15 mmHg. There is no other significant valvular abnormality. The ascending aorta is moderately enlarged. Procedure: A two-dimensional transthoracic echocardiogram with color flow and Doppler was performed. The study quality was technically adequate. There is no prior echocardiogram noted for this patient. The patient was in normal sinus rhythm during the exam. Left Ventricle: The left ventricle is normal in size, wall thickness, and systolic function without any focal wall motion abnormalities. The ejection fraction is estimated to be 60-65%. Diastolic parameters suggest a relaxation abnormality of the left ventricle, consistent with probable normal filling pressures. Right Ventricle: The right ventricle is normal in size and function. Atria: The left atrium is moderately dilated. Right atrial size is normal. There is no Doppler evidence for an interatrial shunt. Mitral Valve: There is mild mitral annular calcification. The mitral valve is normal. There is trace mitral regurgitation. Aortic Valve: The aortic valve is trileaflet. The aortic valve is mildly calcified. There is mild to moderately reduced leaflet mobility. There is mild aortic stenosis. The peak aortic velocity is 2.8 m/sec. The aortic valve mean gradient is 15.2 mmHg. The calculated aortic valve area is 1.5 cm2. No aortic regurgitation is present. Tricuspid Valve: The tricuspid valve is normal in structure and function. There is trace tricuspid regurgitation. The right ventricular systolic pressure is estimated to be at least 33 mmHg based on an estimated right atrial pressure of 8 mm Hg. Pulmonic Valve: The pulmonic valve is not well visualized. There is no other significant valvular heart disease. Great Vessels: The aortic root is normal size. The ascending aorta is moderately enlarged. The pulmonary is not well visualized. The IVC is of normal diameter and collapses less than 50% with a sniff. This suggests a right atrial pressure of 8 mm Hg. Pericardium/ Pleura There is no pericardial effusion. There is no pleural effusion. MMode/2D Measurements & Calculations LVIDd: 4.4 cm LVOT diam: 2.0 cm LVIDs: 2.8 cm Ao root diam: 3.3 cm FS: 36.3 % asc Aorta Diam: 4.1 cm IVSd: 0.76 cm LVPWd: 0.88 cm LV oden. diameter/BSA (cm/m^2): 2.4 LV sys. diameter/BSA (cm/m^2): 1.6 LA A2 area: 23.7 cm2 RA long axis: 5.4 cm LA A4 area: 22.4 cm2 RA area: 17.1 cm2 LA length (vol): 6.1 cm RA vol: 46.2 ml LA vol: 74.2 ml RA : 25.8 ml/m2 LA vol index: 41.4 ml/m2 IVC diam: 1.5 cm RVD1 (basal): 3.3 cm TAPSE: 1.8 cm Doppler Measurements & Calculations Ao V2 max: 282.6 cm/sec LVOT Max Mina: 110.9 cm/sec Ao V2 mean: 181.8 cm/sec LV V1 max P.9 mmHg Ao max P.9 mmHg LV V1 VTI: 25.8 cm Ao mean P.2 mmHg LEXY(I,D): 1.5 cm2 Ao V2 VTI: 52.4 cm LEXY(V,D): 1.2 cm2 sev ratio: 0.49 LEXY indexed to BSA (cm^2/m^2): 0.86 MV E max mina: 66.6 cm/sec TR max mina: 251.7 cm/sec MV A max mina: 97.5 cm/sec TR max P.3 mmHg MV E/A: 0.68 PA V2 max: 86.2 cm/sec Med Peak E' Mina: 7.5 cm/sec PA V2 mean: 56.8 cm/sec E/E' med: 8.9 PA mean P.4 mmHg Lat Peak E' Mina: 9.8 cm/sec PA Accel Time: 0.08 sec E/E' lat: 6.8 E/e' average: 7.8 MV dec time: 0.23 sec SVLVOT): 81.0 ml Reading Physician:03:14 PM
--- NOTE | 2019-12-13 12:50 | CM.DANOTE ---
Patient is a 74 year old female who was admitted OBS on 12/13/19 for Leg Pain, R/O CVA. Pt has [facility] and [employer] for insurance and her PCP is out of [facility]. EMR was reviewed. Per MD, pt with leg weakness and Echo and MRI ordered to r/o CVA vs TIA. PT/OT/ST ordered and pending. SW met bedside with pt and explained role and pt confirms that she lives at home in [facility] with her and is independent at baseline with ADL's and drives. Pt states that she had a knee replacement in the past year and had HH for her knee at that time and found it helpful and pt has not had good range of motion since the surgery. Pt denies any hx of SNF. Pt confirms that she and her came up to [place] for the weekend on their boat to visit friends and vacation before returning home but then pt was admitted to the hospital. Spouse will be bedside later this morning and he is available for assist if needed at d/c. SW met bedside with pt and MD during MDR and MD getting ultrasound of knee due to possible cyst causing the leg pain and will consult Ortho if needed. Plan: SW to follow closely for MRI, ultrasound, PT/OT/ST eval and recommendations to confirm if pt safe for d/c home with spouse when stable and any further identified discharge planning needs. 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 Yes Advance Directives on File No History Provided By Patient,Medical Record Has Patient been admitted in last 30 No days? Prior Living Arrangements House Household Members spouse Type of transporation used prior to Drives own vehicle admit Willing to Return to Facility? No Independent with ADL's Yes Is patient alert and oriented? Yes Caregiver for Another No DME Already Rented / Owned Cane Comment Pending PT/OT/ST eval and recommendations Barriers to Discharge No Discharge Plan Home Transportation Arrangement Spouse bedside and can provide transport at d/c. Additional Comment Pending PT/OT/ST and MRI results Whiteboard Updated in Patient Room with Yes name and ext. 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
[2019-12-13] MEDS: OXYCODONE IR 10 MG TABLET PO ×2 (16:07→20:27)
[2019-12-13] MEDS: ONDANSETRON 4 MG/2 ML INJ IV (18:21)
[2019-12-13] MEDS: ATORVASTATIN 20 MG TABLET PO (20:27)
[2019-12-14] VITALS (13 sets, daily range): BP systolic 118–140; BP diastolic 69–96; PULSE 69–87; RESP 16–20; TEMP 36.4–36.7; O2SAT 93–97
[2019-12-14] MEDS: OXYCODONE IR 10 MG TABLET PO ×2 (00:32→06:35)
[2019-12-14] MEDS: THYROID PO (06:38)
[2019-12-14] MEDS: [UNRECOGNIZED DRUG - OTHER] PO (06:38)
[2019-12-14] MEDS: ASPIRIN EC 81 MG TABLET PO (08:56)
[2019-12-14] MEDS: HEPARIN 5,000 UNIT/ML VIAL 5000 UNIT SUBCUT ×2 (08:57→21:11)
[2019-12-14] MEDS: SODIUM CHLORIDE 0.9% FLUSH 10 ML IV ×2 (08:57→21:12)
[2019-12-14] MEDS: ONDANSETRON 4 MG/2 ML INJ IV (08:58)
--- NOTE | 2019-12-14 09:15 | SLP.IPNOTE ---
Chart reviewed. Spoke to Dr. Guerrero about pt. Dr. Guerrero stated ST is not needed at this time. Will D/C
--- NOTE | 2019-12-14 11:30 | OT.IPNOTE ---
Pt to get MRI at noon, therefore HOLD OT eval for now.
--- NOTE | 2019-12-14 13:42 | PM.PN.1 ---
Subjective Subjective Date Patient Seen: 12/14/19 Interval history: Patient reports improved pain control at rest. It she continues to have exquisite pain with ambulation but was able to get up and have a shower. She is awaiting MRI of the left lower extremity further evaluation. Exam Vital Signs (past 8 hours): - 12/14/19 07:33 12/14/19 09:00 12/14/19 11:40 Temperature 98.0 F 98.0 F Pulse Rate 76 69 Respiratory Rate 20 18 Blood Pressure 129/75 121/72 Pulse Oximetry 93 93 95 12/14/19 13:00 Temperature Pulse Rate Respiratory Rate Blood Pressure Pulse Oximetry 95 Oxygen Delivery Method Room Air Oxygen Flow Rate 0 Narrative Exam Narrative: Pleasant female resting comfortably in no obvious distress Lungs: Clear to auscultation Cardiac exam: Regular rate and rhythm normal S1-S2 with a 2/6 systolic ejection murmur Abdomen: Soft nontender nondistended Extremities: Left knee nontender to palpation, no warmth, no at erythema. Multiple well-healed surgical scars on the anterior knee. Posterior palpation reveals no masses or tenderness. Objective Labs Result Diagrams: 12/12/19 22:22 12/13/19 04:45 Assessment & Plan Assessment & Plan narrative: 1. Left knee pain -ultrasound reveals 3 x 2 x 3 cm a popliteal mass -MRI of the left lower extremity pen -will hold physical therapy until after MRI -orthopedic consultation once MRI studies failed -continue tramadol for pain 2. Hyper lipidemia -continues statin 3. Hypothyroidism Continue thyroid Will resume physical therapy after MRI results further recommendations will be pending the results of above. Quality VTE Deep Vein Thrombosis/Pulmonary Embolism Present on Admission: No
--- NOTE | 2019-12-14 14:08 | PT-IP ANOTE ---
Hospitalist Dr. Guerrero is awaiting results of MRI and plans to consult orthopedics if indicated. She requests therapies continue to hold and will advise when pt is ready to be seen.
--- NOTE | 2019-12-14 14:14 | OT.IPNOTE ---
Still awaiting MRI, therefore to see pt tomorrow for OT eval after results and ortho consult.
[2019-12-14] MEDS: TRAMADOL 50 MG TABLET PO ×2 (16:56→23:51)
--- NOTE | 2019-12-14 17:43 | DI.RAD.S_ITS ---
PROCEDURE: XR KNEE LT 1TO2V INDICATIONS: Left knee pain TECHNIQUE: 3 views of the knee were acquired. COMPARISON: None. FINDINGS: Bones and joint space: Status post total knee arthroplasty. Hardware unremarkable. Joint space is decreased. No acute or suspicious osseous lesion identified. There is a suprapatellar knee joint effusion. Soft tissues: Small calcification near the origin lateral collateral ligament. IMPRESSION: Small calcification in the origin of the lateral collateral ligament is presumably a remote avulsion fracture fragment or degenerative in nature. An acute avulsion fracture cannot be strictly excluded, however. Status post total knee arthroplasty with no acute findings to suggest periprosthetic fracture or loosening. Moderate suprapatellar knee joint effusion. Dictated by: Reji Ramirez M.D. on 12/14/2019 at 18:12 Approved by: Reji Ramirez M.D. on 12/14/2019 at 18:14
--- NOTE | 2019-12-14 17:44 | DI.CT.S_ITS ---
PROCEDURE: CT LE LT W CON INDICATIONS: L knee pain TECHNIQUE: Noncontrast 1-1.5 mm axial sections acquired from the mid-patella to the proximal tibia, with coronal and sagittal reformats. COMPARISON: None. FINDINGS: Image quality: Excellent. Bones: Postsurgical changes of total knee arthroplasty with patellar resurfacing. Severe streak artifact from the hardware completely precludes evaluation of the periarticular bone. Periprosthetic fracture or prosthetic loosening cannot be exclude. There is irregularity of the patellar surface. There is a large suprapatellar and infrapatellar joint effusion. There is no obvious fracture. No suspicious or lytic osseous lesion identified. Soft tissues: No fluid collection. IMPRESSION: Severely limited exam due to streak artifact. Exam is nondiagnostic for periprosthetic fracture or prosthetic loosening. There is no obvious fracture or suspicious bone lesion within the limitations. Dictated by: Reji Ramirez M.D. on 12/14/2019 at 18:29 Approved by: Reji Ramirez M.D. on 12/14/2019 at 18:31
--- NOTE | 2019-12-14 17:45 | P.CONS_ITS ---
History of Present Illness Consult details Date Patient Seen: 12/14/19 Time Patient Seen: 17:45 Chief complaint: Leg pain Reason for consult: Left knee pain Requesting provider: Maryse Guerrero Narrative: 74-year-old female with left knee pain. She has a history of a left knee replacement about 3 years ago incur cleaned. She had been doing well but she and her report that she seems to been having more discomfort and ache in the knee over the past several months. They were coming home from dinner 2 nights ago. She tried to get out of the truck and was unable to weightbear and fell down. She was having severe pain in the left knee. He came into the emergency room and were admitted for pain control. She denies any prodromal trauma. All the pain seems to be centered around the knee and going up the anterior and lateral and medial aspect of the distal 2/3 of the thigh. She denies any pain on the right leg. Minimal pain at rest but if she rolls over she gets severe pain. She is unable to do any weight-bearing without 10/10 pain in the knee. Sharp and stabbing. No fever chills or recent infection. She denies pain in the back or any radiating sciatic pain running down the leg. No numbness or tingling in the leg. Meds Home Medications and Allergies Home Medications Medication Instructions Recorded Confirmed Type Nature-Throid 16.25 mg PO QDAY@0600 #0 10/11/16 12/13/19 History ascorbic acid (vitamin C) 4,000 mg PO BID #0 10/11/16 12/13/19 History multivitamin [Multiple Vitamins] 1 tab PO QDAY #0 10/11/16 12/13/19 History Zinc 30 mg PO DAILY 12/13/19 12/13/19 History milk thistle 75 mg PO DAILY 12/13/19 12/13/19 History rosuvastatin [Crestor] 5 mg PO BEDTIME 12/13/19 12/13/19 History Allergies Allergy/AdvReac Type Severity Reaction Status Date / Time adhesive tape [ADHESIVE TAPE] Allergy Unknown Verified 12/13/19 00:08 latex [LATEX] Allergy Unknown Verified 12/13/19 00:08 Penicillins [PENICILLINS] Allergy Unknown Verified 12/13/19 00:08 Tetracyclines [TETRACYCLINES] Allergy Unknown Verified 12/13/19 00:08 Review of Systems Constitutional Constitutional: Denies chills, Denies fever(s) and Denies frequent falls Cardiovascular Cardiovascular: Denies chest pain and Denies syncope Respiratory Respiratory: Denies cough Integumentary/Breasts Skin/Breast: Denies new lesions Neurologic Neurologic: Denies syncope and Denies frequent falls Hematologic/Lymphatic Hematologic/Lymphatic: Denies easy bleeding Exam Vital Signs (past 8 hours): - 12/14/19 11:40 12/14/19 13:00 12/14/19 16:34 Temperature 98.0 F Pulse Rate 69 76 Respiratory Rate 18 16 Blood Pressure 121/72 140/72 Pulse Oximetry 95 95 96 Oxygen Delivery Method Room Air Oxygen Flow Rate 0 Const Orientation: alert and oriented x3 Resp Auscultation: clear to auscultation bilaterally Cardio Rate: regular rate Rhythm: regular rhythm Extrem Other: Left [id number] parapatellar incision. No erythema or induration. Minimal swelling. 2 cm mobile nodule over the medial aspect of the joint line. She is tender over this region as well as all along the medial and lateral joint line. Tender along the medial and lateral femoral condyle. Range of motion 30? flexion and lacking 5? to full extension. Normal sensation throughout the leg. 1+ dorsalis pedis pulse. Easily wiggles toes. Soft calf. Objective Imaging MRI left knee: My impression: Limited by significant metallic artifact from the knee replacement. Small 2 x 3 cm lipoma along the medial aspect of the knee. Small Cifuentes cyst posteriorly. Labs Result Diagrams: 12/12/19 22:22 12/13/19 04:45 Assessment & Plan Assessment & Plan narrative: Left knee pain. I do not see any sign of infect ion. I do not think this is sciatic coming from her lumbar spine. If she has been having some prodromal problems with the knee recently, there may be some loosening of the components. I also want to make sure that she did not sustain a fracture when she went down. I have ordered an x-ray and CT scan of the left knee to evaluate this further. COVID-19 COVID-19 status: Negative Result date/Date tested (Pos, Neg/Pending): 12/13/19
[2019-12-14] MEDS: ROSUVASTATIN 10 MG TABLET 5 MG PO (21:11)
[2019-12-15 00:45] VITALS: O2SAT 94
[2019-12-15 05:30] VITALS: BP 121/68; PULSE 73; RESP 18; TEMP 36.5; O2SAT 95
[2019-12-15] MEDS: [UNRECOGNIZED DRUG - OTHER] PO (05:45)
[2019-12-15] MEDS: THYROID PO (05:45)
[2019-12-15 06:32] VITALS: O2SAT 95
--- NOTE | 2019-12-15 07:24 | P.PN_ITS ---
Subjective Subjective Date Patient Seen: 12/15/19 Time Patient Seen: 07:24 Interval history: She is feeling much better today. She actually slept through most of the night. Exam Vital Signs (past 8 hours): - 12/14/19 23:30 12/15/19 00:45 12/15/19 05:30 Temperature 97.6 F 97.7 F Pulse Rate 79 73 Respiratory Rate 18 18 Blood Pressure 121/69 121/68 Pulse Oximetry 94 94 95 12/15/19 06:32 Temperature Pulse Rate Respiratory Rate Blood Pressure Pulse Oximetry 95 Oxygen Delivery Method Room Air Oxygen Flow Rate 0 Const Orientation: alert and oriented x3 Extrem Other: Left knee well-healed incision. No erythema or induration or swelling. Range of motion 3? from full extension but almost 90? of flexion comfortably this morning. Tender along the medial lipoma. Tender along the lateral collateral ligament. Small calcified avulsion off the lateral collateral ligament Objective Imaging Left knee x-rays: My impression: Show no evidence of any fracture. No evidence of any hardware loosening. She does have a thin polyethylene space. Mild joint effusion CT scan of left knee: My impression: No evidence of fracture or mass. Labs Result Diagrams: 12/12/19 22:22 12/13/19 04:45 Assessment & Plan Assessment & Plan narrative: She is doing much better today. I reassured her that there is no sign of fracture. She may have torn through part of the lateral collateral ligament. Soft tissue injuries like this usually get better within a few days which would match her current condition. I see no acute process of fracture or any sign of infection. We will try to get her in a well-fitting knee immobilizer today and up with phys ical therapy. This may be enough to stabilize with that she is comfortable and can go home. She can follow up with her knee surgeon electively. Quality VTE Deep Vein Thrombosis/Pulmonary Embolism Present on Admission: No
--- NOTE | 2019-12-15 08:50 | P.DS_ITS ---
History of Present Illness History of Present Illness Date Patient Seen: 12/15/19 Chief complaint: Leg pain Narrative: Ms. Jeannie Santos is a 74-year-old female with a past medical history significant for hypertension, hyperlipidemia and hypothyroidism who presents to the ER with left leg weakness. The patient has been her visiting on the boat from [facility] and had had dinner out with friends had consumes alcoholic beverages. She was getting out of the car at approx imately 8:45 p.m. tonight when she found she could not move her left leg or bear weight. The patient reports no antecedent trauma or injury and denies complaints of back pain, headache or dizziness. She has had no previous episodes of leg weakness though she is status post left total knee replacement. The patient complains of left knee pain, no radiculopathy, no muscular pain. She has had no recent illness with no fevers or chills, denies nasal congestion or sore throat. She has had no chest pain or palpitations. She denies shortness of breath cough or wheezing and has a past smoker quitting in 1979. She reports no abdominal pain, nausea vomiting, diarrhea or constipation. She has no urinary symptoms but endorses stress incontinence. Patient is typically ambulatory using no assistive devices and independent in all ADLs. Upon arrival the patient is afebrile with a temperature 97.7?, heart rate of 96, blood pressure 160/85, respirations of 20 saturating 96% on room air. CT stroke protocol is obtained finding no acute intracranial pathology, CT angiogram also obtained finding no occlusion or hemodynamically significant stenosis of the carotid or vertebral arteries, no dissection. On laboratory analysis patient has white count 7.6, hemoglobin 14.8, hematocrit 43.3 and platelets of 344. She has a PT of 10.5, INR 0.9 and PTT of 29. Electrolytes within normal range with a BUN of 16 and creatinine 0.68, nonfasting glucose is 96. Liver functions are all within normal range. She has a total CK is 72 and a troponin negative less than 0.012. Her urinalysis is positive for leukocyte esterase but negative for nitrites WBCs or bacteria. An IH on initial presentation to the ER is reported as 3 at time of admission her NIH score is 1. In the ER the patient received 15 mg Toradol IV and 1 L of IV fluid. Patient mid to the medicine service for possible CVA versus TIA. Discharge Providers Provider Date of admission: 12/13/19 00:59 Discharge Date: 12/15/19 Consults: 12/13/19 01:15 Consult to Discharge Planning Routine Comment: Consult to Occupational Therapy Evaluate & Treat Comment: Physician Instructions: Evaluate and treat Consult to Physical Therapy Evaluate & Treat Comment: Physician Instructions: Evaluate and Treat Consult to Speech Therapy Evaluate & Treat Comment: Physician Instructions: Evaluate and treat 12/14/19 17:17 Consult to Orthopedic Surgery Routine Comment: Consulting Provider: Rojas Ovalle Reason for consultation: L knee pain Has provider been notified: Yes Discharge provider: Maryse Guerrero MD Summary Hospital Course Discharge Diagnosis: 1. Left knee pain, probable knee strain, remote history of left knee surgery 2. Hypothyroidism 3. Hyperlipidemia Hospital Course: Patient was admitted to the hospital following a fall. She was determined to have significant left knee pain. Patient underwent an MRI of the knee which showed a 2 x 3 x 3 cm a solitary mass in the popliteal fossa. She had a follow-up MRI which confirmed findings above. She was seen in consultation by Orthopedic surgery. They recommended x-rays of the knee in addition to a CT of the knee. The x-rays of the knee did not show any worsening fracture. The CT scan of the left knee revealed the following findings: Postsurgical changes of total knee arthroplasty with patellar resurfacing. Severe streak artifact from the hardware completely precludes evaluation of the periarticular bone. Periprosthetic fracture or prosthetic loosening cannot be exclude. There is irregularity of the patellar surface. There is a large suprapatellar and infrapatellar joint effusion. There is no obvious fracture. No suspicious or lytic osseous lesion identified. Dr. Godinez recommended a knee brace and for the patient to have outpatient follow-up with her primary orthopedic surgeon. The patient was deemed appropriate for did patient arrangements were made to discharge her home. Status at Discharge Cognitive/behavioral status at discharge: oriented Functional status at discharge: independent ambulation Overall status at discharge: patient is not back to baseline Time Spent with Patient Time spent: Less than 30 minutes Exam Vital Signs (past 8 hours): - 12/15/19 05:30 12/15/19 06:32 Temperature 97.7 F Pulse Rate 73 Respiratory Rate 18 Blood Pressure 121/68 Pulse Oximetry 95 95 Oxygen Delivery Method Room Air Oxygen Flow Rate 0 Narrative Exam Narrative: Pleasant female in no acute distress Lungs: Clear to auscultation Cardiac exam: Regular rate and rhythm normal S1 and with a 2/6 systolic ejection Abdomen: Soft and nontender Left knee: No swelling erythema or edema well-healed surgical scars noted the left knee is tender to palpation up to the area of the left groin Objective Labs Result Diagrams: 12/12/19 22:22 12/13/19 04:45 Discharge Assessment & Plan Assessment and Plan Assessment: 1. Left knee pain 2. Hyperlipidemia 3. Hypothyroid Plan of Treatment: Discharge home with a knee brace Follow-up with primary Orthopedics as an outpatient Discharge Plan Discharge Plan Patient Disposition: Home Discharge comment: F/u with Dr. Flores Discharge orders & Medications Prescriptions: New tramadol 50 mg Tablet 50 mg PO TID PRN (Reason: Pain, Moderate (4-6)) Qty: 20 RF: 0 Continued multivitamin [Multiple Vitamins] 1 EACH tablet 1 tab PO QDAY Qty: 0 RF: 0 ascorbic acid (vitamin C) 500 MG tablet 4,000 mg PO BID Qty: 0 RF: 0 Nature-Throid 16.25 MG tablet 16.25 mg PO QDAY@0600 Qty: 0 RF: 0 rosuvastatin [Crestor] 5 mg tablet 5 mg PO BEDTIME RF: 0 milk thistle capsule 75 mg PO DAILY RF: 0 Zinc 30 mg PO DAILY RF: 0 Diet/Activity/Treatments Diet: Low-sodium Activity: as tolerated Visit Report/Discharge Packet Instructions: Tramadol Visit Report Forms: Patient Portal/API, Stroke Signs & Symptoms Discharge Data Attending Provider: Pelon Maurer Admit Date/Time: 12/13/19 00:59 Quality VTE Deep Vein Thrombosis/Pulmonary Embolism Present on Admission: No
[2019-12-15 09:00] VITALS: BP 124/70; PULSE 82; RESP 19; TEMP 36.6; O2SAT 94
[2019-12-15] MEDS: TRAMADOL 50 MG TABLET PO (09:06)
[2019-12-15] MEDS: ASPIRIN EC 81 MG TABLET PO (09:06)
[2019-12-15] MEDS: HEPARIN 5,000 UNIT/ML VIAL 5000 UNIT SUBCUT (09:06)
[2019-12-15] MEDS: SODIUM CHLORIDE 0.9% FLUSH 10 ML IV (09:07)
--- NOTE | 2019-12-15 11:24 | PT.IIE ---
Surgical History (Last Reviewed 12/14/19 @ 17:48 by Rojas Ovalle MD) History of ankle surgery (Acute) History of bladder suspension procedure (Acute) History of hysterectomy (Acute) History of total knee arthroplasty (Acute) Medical History (Last Reviewed 12/14/19 @ 17:48 by oRjas Ovalle MD) Hyperlipidemia (Acute) Hypertension (Acute) Hypothyroidism (acquired) (Acute) Microscopic colitis (Acute) Physical Therapy Inpatient Evaluation/Re-Eval M1 PT/OT-IP Prior Functional Status Start: 12/14/19 08:28 Freq: NEEDED Status: Active Protocol: Document 12/15/19 11:09 AW (Rec: 12/15/19 11:24 AW [email or web address]) Medical Review Prior Functional Status Medical History Reviewed Yes Communication WNL. No deficits noted. Able to make needs known. Mobility and Gait IND with all functional mobility. Activities of Daily Living and IADL's IND at baseline. Prior Functional Level (Other details) Hx of R ankle replacement in Dec 2018. Social History Household Members spouse Living Arrangements House Number of Floors (Floors) Two Floors Number of Stairs To Enter/Railing? 1 ERNIE with no railing. 7+landing+7 ERNIE with no railing, where she sit-bumps up and down. Home Environment Standard Height Toilet,Walk in Shower Home Equipment Front Wheel Walker,Four Wheel Walker,Straight Cane,Crutches, Raised Toilet Seat w/Armrests, Shower Seat without Backrest, Hand Held Shower,Long Handled Sponge,Long Handled Shoe Horn, Systems Operator,Sock Aid Employment Status Retired Additional Social History Comment Pt lives with spouse, who is also retired and able to assist her at home. There is a magazine aguayo on the wall that pt can use for assist if needed. M2 PT-IP Current Condition Start: 12/14/19 08:28 Freq: NEEDED Status: Active Protocol: Document 12/15/19 11:09 AW (Rec: 12/15/19 11:24 AW [email or web address]) Physical Therapy Current Condition Current Condition Evaluation Date 12/15/19 Treatment Diagnosis left knee pain; difficulty in walking Onset Date 12/13/19 M3 PT-IP Subjective Start: 12/14/19 08:28 Freq: NEEDED Status: Active Protocol: Document 10/13/20 11:09 AW (Rec: 12/15/19 11:24 AW [email or web address]) Subjective Physical Therapy Visit Type Type Initial Evaluation Visit Start Time 10:13 Visit Stop Time 10:38 Total Visit Minutes 25 Notes SPT Jaret present throughout evaluation Number of AUGER OPERATOR Visits 0 Physical Therapy Visit Comments Patient Comments Pt is feeling better today. I got to the chair without needing the walker. Patient Goals To return home Therapy Pain Assessment Pain When Pain Assessed During Mobility Pain Present Pain Present Pain Reported Location Left Thigh Intensity 7 Pain Management Techniques Re-positioning,Timing of Activity with Medications M4 PT-IP Mobility and Gait Start: 12/14/19 08:28 Freq: NEEDED Status: Active Protocol: Document 12/15/19 11:09 AW (Rec: 12/15/19 11:24 AW [email or web address]) PT-Bed Mobility Assessment Supine to Sit Supine to Sit Standby Assistance Sit to Supine Sit to Supine Standby Assistance Scooting Scooting to Edge of Bed Standby Assistance Scooting Up and Down in Bed Standby Assistance PT-Transfer Assessment Sit to and From Stand Sit to and from Stand Contact Guard Assistance Equipment Transfer Assistive Device Gait Belt,Front Wheeled Walker Orthotic/Prosthetic Devices or Brace: Yes Transfers Transfer Destination Bed,Chair Transfer Technique pt ambulated with FWW Transfer Ability Level of Assist Standby Assistance Comments Mobility Comments Pt was sitting up in the bedside chair as PT and SPT arrived. PT donned the 16 knee immobilizer and instructed the patient in donning/doffing. She completed sit to stand from the chair CGA and proceeded to ambulate around the unit for a total of 110 feet SBA with FWW. Gait was notable for step-to patterning but pt noted improved stability and confidence with the left knee. She returned to the room and sat on the chair. PT brought the platform step into the room for pt to practice entering her home. After stair training, pt transferred to the bed where she indpendently doffed and donned the brace. She then transferred back to the chair SBA before requesting to use the toilet. Pt was assisted to the toilet where she transferred SBA. She agreed to use the call light when finished. RN was notified . Gait Assessment Gait Gait Assistance Required: Standby Assistance Distance (Feet) 110 Able to Maintain Weight Bearing Status Yes During Gait Assistive Devices Assistive Device Gait Belt,Front Wheeled Walker Orthotic/Prosthetic Devices or Brace: Yes Gait Deviations General Gait Pattern Antalgic,Decreased Stride Length,Decreased Feet Clearance,Flexed Trunk,Step-to Gait Factors Limiting Gait Function Factors Limiting Gait Function Decreased Activity Tolerance, Decreased Strength,Limited Range of Motion,Pain,Poor Balance Comments Gait Comments See mobility comments for details. Knee immobilizer was worn for all mobility. Stair Climbing Assessment Evaluation Level of Assist On Stairs Contact Guard Assistance Devices Stair Climbing Assistive Devices Front Wheel Walker Technique/Endurance Stair Climbing Direction Ascend and Descend Stair Climbing Technique Step to Step Number of Steps Climbed 1 Query Text: Stair Climbing Set # Repetitions (reps) 2 Comments Stair Climbing Comments Pt completed stair climbing one step forward and backward requiring no more than CGA. Pt will be able to instruct her in providing this assist. PT-Balance Assessment Sitting Balance and Reactions Static Sitting Balance Ability Normal Dynamic Sitting Balance Ability Normal Standing Balance and Reactions Static Standing Balance Ability Good Dynamic Standing Balance Ability Good Device Used FWW M5 PT-IP Objective Assessments Start: 12/14/19 08:28 Freq: NEEDED Status: Active Protocol: Document 12/15/19 11:09 AW (Rec: 12/15/19 11:24 AW [email or web address]) Orientation Orientation/Cognition Level of Alertness Alert Orientation Name,Day of Week,Place, Situation Language Function Ability No Deficits Noted Safety Awareness Understands Safety Issues Memory Description No Deficits Noted Gross Range of Motion Upper Extremity ROM Assessment Within Functional Limits Lower Extremity ROM Assessment Right Impaired Strength Upper Extremity Strength Assessment Within Functional Limits Lower Extremity Strength Assessment Right Impaired Hip 3+/5 Ankle 4/5 Comments Strength Comments LLE grossly 5/5 Coordination Assessment Gross Coordination Gross Coordination WNL Sensation Assessment Sensation Gross Sensation WNL Muscle Tone Muscle Tone WNL Yes M6 PT-IP Treatment Start: 12/14/19 08:28 Freq: NEEDED Status: Active Protocol: Document 12/15/19 11:09 AW (Rec: 12/15/19 11:24 AW [email or web address]) Physical Therapy Treatment Exercises Exercises Ankle Pumps,Gluteal Sets Education Education Provided Precautions,Weight Bearing Status Brace Education Donning,[place],Patient Equipment Issued Equipment Type and Company [place] Knee Immobilizer per ortho request from [employer]. Other Treatments Other Treatment Performed Provided education M7 PT-IP Assessment and Plan Start: 12/14/19 08:28 Freq: NEEDED Status: Active Protocol: Document 12/15/19 11:09 AW (Rec: 12/15/19 11:24 AW [email or web address]) PT Summary Assessment and Plan Potential Rehabilitation Potential Excellent Status of Condition at Evaluation Evolving Summary Impairments Pain,ROM,Strength,Balance,Bed Mobility,Transfers,Gait, Activity Tolerance Progress Towards Goals Safe For Discharge Assessment Summary Jeannie is a 74 yo woman seen for PT evaluation with complaint of left knee and groin pain following a fall on 12/13/19. CT identified possible left lateral collateral ligament tear and ortho recommended WBAT with knee immobilizer for all mobility. Pt is completely independent and active at baseline. On evaluation, pt's mobility tolerance improved dramatically with knee immobilizer. She completed all mobilities SBA to CGA for stairs. Pt is safe for discharge to home environment with spouse assist. She plans to practice sitting bump for stairs to upper level and she has been cleared on platform step for home entry using FWW. She would benefit from outpatient PT. Goals Bed Mobility Goal Independent Transfer Goal Independent,Front Wheeled Walker Gait Goal Independent,Front Wheel Walker Gait Distance 300 Days to Meet Goals 3 Frequency of Treatment Frequency Of Treatment Discharge Recommendations To Nursing Amount of Assist Needed 1 Person Assist Discharge Recommendations PT Discharge Recommendations Home with Assistance, Outpatient PT Transportation Needs at Discharge Private Vehicle
--- NOTE | 2019-12-15 12:06 | OT.IPNOTE ---
Approached pt to for OT eval , pt states has all equipment needs from a prior L TKA and a supportive to assist at home. Pt states does not feel OT eval necessary, therefore discharge OT eval orders.
--- NOTE | 2019-12-15 12:25 | PC.NURSE ---
Assess- Patient will be discharging at at 1230. She signed medical release form and this has been sent down to medical records who will send to the DrArlet that she specified on sheet. Worked with physical therapy and tolerated well. Patient fitted with a knee brace properly. Given tramadol earlier this morning, and pt felt better. She is now getting dressed and to drive her home to [place].
--- NOTE | 2019-12-15 13:50 | CM.DPC ---
DCP: continued: case received and met with pt during Team Bedside Rounds. Dr. Guerrero would d/c home today. Ortho team had signed off. PT dept working on a better fitting brace for pt and her records were being sent on to her providers in [place]. Pt confirmed her would be here to take here home. A check in now shows she left as planned about 1230.
--- NOTE | 2019-12-21 19:04 | PC.NURSE ---
Late Entry; NS infusion initiated 12/12 at 2:21, stopped per d/c order 12/12 at 11:42.
== END 2019-12-15 12:39 | disposition home or self-care (01) ==
LOC: ED 12-13 00:59 → AC 12-13 00:59
PROVIDERS: Admitting Provider Nurse Practitioner Adult Health; Emergency Provider Emergency Medicine; Referring Provider Emergency Medicine; Visit Provider Nurse Practitioner Adult Health
DX: M79.652 Pain in left thigh (principal); E03.9 Hypothyroidism, unspecified; E78.00 Pure hypercholesterolemia, unspecified; I10 Essential (primary) hypertension; Z96.652 Presence of left artificial knee joint; Z11.59 Encounter for screening for other viral diseases
CPT/HCPCS: 36415; 70450; 70496; 70498; 73560; 73700; 73723; 76882; 80048; 80053; 80061; 80305; 80320; 81001; 81003; 82550; 82553; 82962; 83036; 83735; 84443; 84484; 85025; 85610; 85730; 87086; 87635; 93005; 93306; 96361; 96372; 96374; 96375; 96376; 97161; 97530; 99285; G0378; A9579; J1644; J1885; J2405; Q9967